=== PATIENT | male | born 1995 | race Caucasian/White ===

== ENCOUNTER 2018-06-18 08:21 | Emergency (ER) | payer BC ==
[2018-06-18] MEDS ORDERED: Famotidine IV* 10 MG/ML 2 ML (20 mg) IV SLOW PU ONE (08:32)
[2018-06-18] MEDS: NS 0.9% 1000 ML* 2,000 ML IV ONE (08:52)
[2018-06-18 08:57] LABS: ABS Basophils 0.1 10^3/ul (0-0.2); ABS Eosinophils 0.2 10^3/ul (0-0.6); ABS Lymphocytes 2.7 10^3/ul (1.0-4.8); ABS Monocytes 0.8 10^3/ul (0-0.8); ABS Neutrophils 5.8 10^3/ul (1.5-7.7); ABS Nucleated RBC 0 10^3/ul; Eosinophil % 1.6 % (0-6); Hematocrit 44 % (42-52); Hemoglobin 15.4 g/dl (14.0-18.0); Lymphocyte % 28.6 % (25-47); Mean Corpuscular HGB Conc 35 g/dl (31-36); Mean Corpuscular Hemoglobin 31 pg (27-31); Mean Corpuscular Volume 88 fL (80-94); Mean Platelet Volume 7.2 um3 (7.4-10.4); Nucleated Red Blood Cells % 0.1; Platelet Count 212 10^3/ul (150-450); Red Cell Distribution Width 13 % (10.5-15); White Blood Count 9.6 10^3/ul (3.5-10.8)
[2018-06-18] MEDS ORDERED: Ondansetron INJ* 2 MG/ML VIAL IV ONE (08:59)
[2018-06-18 09:05] LABS: INR 1.12 (0.77-1.02)
[2018-06-18 09:13] LABS: EGFR Non-African American 76.5 (>60)
[2018-06-18 11:03] VITALS: BP 107/51
--- NOTE | 2018-06-18 11:39 | ED ---
GI/ HPI - HPI Summary HPI Summary: Patient is a 23-year-old male with no significant PMH presenting to the ED after a night of drinking rum and cokes with a concern for "coffee ground emesis 2." He states this started us morning, had 2 episodes and has since resolved approximately 2 hours [employer]. He feels well on arrival and denies any nausea at this time. He states this is never happened to him before. He endorses drinking "several" rum and cokes and endorses drinking diet Coke. He denies any other concerns or symptoms at this time. Denies any abdominal pain, constipation, diarrhea, blood in stool, early satiety. Denies any history of ulcers or GI issues. He states he feels otherwise well at this time. - History of Current Complaint Chief Complaint: EDGIBleed Time Seen by Provider: 06/18/18 08:31 Stated Complaint: BLACK VOMIT Hx Obtained From: Patient Onset/Duration: Started Hours Ago Timing: Constant Severity: Moderate Current Severity: Moderate Pain Intensity: 0 Location of Pain: Epigastric Associated Signs and Symptoms: Positive: Hematemesis - "coffee ground emesis". Negative: Syncope, Nausea, Vomiting, Weight Loss, Recent Abnormal Coagulation Studies, Constipation, External Hemorrhoids, Blood-Streaked Stool, Change in Appetite, Lightheadedness, Abdominal Pain Aggravating Factor(s): Nothing Alleviating Factor(s): Nothing - Wet have - Risk Factors GI Bleed Risk Factor(s): Negative Testicular Torsion Risk Factor(s): Negative - Allergy/Home Medications Allergies/Adverse Reactions: Allergies Allergy/AdvReac Type Severity Reaction Status Date / Time No Known Allergies Allergy Verified 06/18/18 08:23 Home Medications: Home Medications NK [No Home Medications Reported] 06/18/18 [History Confirmed 06/18/18] PMH/Surg Hx/FS Hx/Imm Hx Previously Healthy: Yes - Immunization History Hx Pertussis Vaccination: No Immunizations Up to Date: Yes Infectious Disease History: No Infectious Disease History: Denies: Traveled Outside the [place] in Last 30 Days - Social History Occupation: Unemployed Lives: With Family Alcohol Use: Occasionally Hx Substance Use: No Substance Use Type: Reports: None Hx Tobacco Use: No Smoking Status (MU): Never Smoked Tobacco Review of Systems Constitutional: Negative Negative: Fever, Chills, Fatigue, Skin Diaphoresis Negative: Epistaxis, Dental Pain Negative: Palpitations, Chest Pain Negative: Shortness Of Breath, Cough Positive: Abdominal Pain - epigastric, Vomiting, Nausea Genitourinary: Negative Positive: no symptoms reported, see HPI Neurological: Negative All Other Systems Reviewed And Are Negative: Yes Physical Exam Triage Information Reviewed: Yes Vital Signs On Initial Exam: Initial Vitals Temp Pulse Resp BP Pulse Ox 98.9 F 69 14 120/66 97 06/18/18 08:24 06/18/18 08:24 06/18/18 08:24 06/18/18 08:24 06/18/18 08:24 Vital Signs Reviewed: Yes Appearance: Positive: Well-Appearing, Well-Nourished Skin: Positive: Warm, Skin Color Reflects Adequate Perfusion Head/Face: Positive: Normal Head/Face Inspection Eyes: Positive: EOMI, EUGENE, Conjunctiva Clear Neck: Positive: Supple, No Lymphadenopathy Respiratory/Lung Sounds: Positive: Clear to Auscultation, Breath Sounds Present Cardiovascular: Positive: RRR, Pulses are Symmetrical in both Upper and Lower Extremities Abdomen Description: Positive: Soft Bowel Sounds: Positive: Present Musculoskeletal: Positive: Strength/ROM Intact Neurological: Positive: Alert, Oriented to Person Place, Time, Speech Normal Psychiatric: Positive: Normal, Affect/Mood Appropriate Diagnostics - Vital Signs Vital Signs Temp Pulse Resp BP Pulse Ox 06/18/18 11:03 99.0 F 84 17 107/51 96 06/18/18 10:33 75 8 107/51 98 06/18/18 10:03 65 15 107/51 99 06/18/18 10:00 178 18 98 06/18/18 09:33 66 16 110/67 98 06/18/18 09:03 81 17 117/78 99 06/18/18 09:00 85 28 99 06/18/18 08:33 76 15 124/64 97 06/18/18 08:32 69 17 98 06/18/18 08:24 98.9 F 69 14 120/66 97 - Laboratory Lab Results: Lab Results 06/18/18 06/18/18 06/18/18 Range/Units 08:49 08:49 08:50 WBC 9.6 (3.5-10.8) 10^3/ul RBC 5.00 (4.00-5.40) 10^6/ul Hgb 15.4 (14.0-18.0) g/dl Hct 44 (42-52) % MCV 88 (80-94) fL MCH 31 (27-31) pg MCHC 35 (31-36) g/dl RDW 13 (10.5-15) % Plt Count 212 (150-450) 10^3/ul MPV 7.2 L (7.4-10.4) um3 Neut % (Auto) 60.9 (38-83) % Lymph % (Auto) 28.6 (25-47) % [place] % (Auto) 8.4 H (0-7) % Eos % (Auto) 1.6 (0-6) % Baso % (Auto) 0.5 (0-2) % Absolute Neuts (auto) 5.8 (1.5-7.7) 10^3/ul Absolute Lymphs (auto) 2.7 (1.0-4.8) 10^3/ul Absolute Monos (auto) 0.8 (0-0.8) 10^3/ul Absolute Eos (auto) 0.2 (0-0.6) 10^3/ul Absolute Basos (auto) 0.1 (0-0.2) 10^3/ul Absolute Nucleated RBC 0 10^3/ul Nucleated RBC % 0.1 INR (Anticoag Therapy) 1.12 H (0.77-1.02) APTT 28.4 (26.0-36.3) seconds Sodium 140 (135-145) mmol/L Potassium 4.0 (3.5-5.0) mmol/L Chloride 107 (101-111) mmol/L Carbon Dioxide 25 (22-32) mmol/L Anion Gap 8 (2-11) mmol/L BUN 14 (6-24) mg/dL Creatinine 1.18 H (0.67-1.17) mg/dL Est GFR ( Amer) 92.6 (>60) Est GFR (Non-Af Amer) 76.5 (>60) BUN/Creatinine Ratio 11.9 (8-20) Glucose 89 (70-100) mg/dL Lactic Acid (0.5-2.0) mmol/L Calcium 9.2 (8.6-10.3) mg/dL Total Bilirubin 0.80 (0.2-1.0) mg/dL AST 27 (13-39) U/L ALT 17 (7-52) U/L Alkaline Phosphatase 75 (34-104) U/L C-Reactive Protein 23.41 H (<8.01) mg/L Total Protein 7.0 (6.4-8.9) g/dL Albumin 4.5 (3.2-5.2) g/dL Globulin 2.5 (2-4) g/dL Albumin/Globulin Ratio 1.8 (1-3) Lipase 16 (11.0-82.0) U/L 06/18/18 Range/Units 08:50 WBC (3.5-10.8) 10^3/ul RBC (4.00-5.40) 10^6/ul Hgb (14.0-18.0) g/dl Hct (42-52) % MCV (80-94) fL MCH (27-31) pg MCHC (31-36) g/dl RDW (10.5-15) % Plt Count (150-450) 10^3/ul MPV (7.4-10.4) um3 Neut % (Auto) (38-83) % Lymph % (Auto) (25-47) % [place] % (Auto) (0-7) % Eos % (Auto) (0-6) % Baso % (Auto) (0-2) % Absolute Neuts (auto) (1.5-7.7) 10^3/ul Absolute Lymphs (auto) (1.0-4.8) 10^3/ul Absolute Monos (auto) (0-0.8) 10^3/ul Absolute Eos (auto) (0-0.6) 10^3/ul Absolute Basos (auto) (0-0.2) 10^3/ul Absolute Nucleated RBC 10^3/ul Nucleated RBC % INR (Anticoag Therapy) (0.77-1.02) APTT (26.0-36.3) seconds Sodium (135-145) mmol/L Potassium (3.5-5.0) mmol/L Chloride (101-111) mmol/L Carbon Dioxide (22-32) mmol/L Anion Gap (2-11) mmol/L BUN (6-24) mg/dL Creatinine (0.67-1.17) mg/dL Est GFR ( Amer) (>60) Est GFR (Non-Af Amer) (>60) BUN/Creatinine Ratio (8-20) Glucose (70-100) mg/dL Lactic Acid 1.5 (0.5-2.0) mmol/L Calcium (8.6-10.3) mg/dL Total Bilirubin (0.2-1.0) mg/dL AST (13-39) U/L ALT (7-52) U/L Alkaline Phosphatase (34-104) U/L C-Reactive Protein (<8.01) mg/L Total Protein (6.4-8.9) g/dL Albumin (3.2-5.2) g/dL Globulin (2-4) g/dL Albumin/Globulin Ratio (1-3) Lipase (11.0-82.0) U/L Result Diagrams: 06/18/18 08:50 06/18/18 08:49 Lab Statement: Any lab studies that have been ordered have been reviewed, and results considered in the medical decision making process. GIGU Course/Dx - Course Course Of Treatment: Patient is evaluated for "coffee-ground emesis." He was drinking several rum and Cokes last evening and had 2 episodes of emesis this morning. He feels well on arrival. He is hemodynamically stable. He is nontoxic in appearing. Fluids, famotidine, Zofran given. Patient feels well. Coffee-ground emesis likely secondary to rum and Coke which is a common result. He stated ED approximate 2.5 hours with no recurring emesis. He is given strict return precautions however and understands these given to him. He remains hemodynamically stable throughout the course of treatment. - Diagnoses Provider Diagnoses: Coffee ground emesis, Alcohol consumption binge drinking Discharge - Sign-Out/Discharge Documenting (check all that apply): Patient Departure - Discharge Plan Condition: Stable Disposition: HOME Referrals: No Primary Care Phys,NOPCP [Primary Care Provider] - Additional Instructions: Drink plenty of water - Billing Disposition and Condition Condition: STABLE Disposition: Home
== END 2018-06-18 11:03 | disposition home or self-care (01) ==
LOC: ED 08:21
DX: R10.13 Epigastric pain (principal); R11.2 Nausea with vomiting, unspecified; R11.10 Vomiting, unspecified; F10.10 Alcohol abuse, uncomplicated
CPT/HCPCS: 36415; 80053; 83605; 83690; 85025; 85610; 85730; 86140; 96361; 96374; 99283; J2405